=== PATIENT | female | born 1980 | race Caucasian/White ===

== ENCOUNTER 2017-10-04 10:14 | Emergency (ER) | payer OTHER ==
[~2017-10-04] VITALS: Ht 162.6 cm; Wt 52.6 kg
[~2017-10-04 10:14] MED LIST: CEFUROXIME250 MG PO; DOLOGESIC-DF 51 EACH PO; MONISTAT 31 EACH VAG
[2017-10-04] MEDS ORDERED: MULTIVITAMINAS (10:27)
[2017-10-04] MEDS ORDERED: ZITHROMAX TRI-500 MG PO (13:02)
[2017-10-04] MEDS ORDERED: TUSSI PRES-B L120 M1 PO (13:02)
== END 2017-10-04 13:13 | disposition home or self-care (01) ==
LOC: ER 10:14 → EMR PED 10:14 → ER 10:36
DX: B34.9 Viral infection, unspecified (principal)

== ENCOUNTER 2017-10-28 10:28 | Emergency (ER) | payer OTHER ==
[~2017-10-28] VITALS: Ht 167.6 cm; Wt 54.4 kg
[~2017-10-28 10:28] MED LIST changes: +MULTIVITAMINAS; +TUSSI PRES-B L120 M1 PO; +ZITHROMAX TRI-500 MG PO
== END 2017-10-28 13:55 | disposition home or self-care (01) ==
LOC: ER 10:28
DX: N93.8 Other specified abnormal uterine and vaginal bleeding (principal)

== ENCOUNTER 2018-09-17 11:49 | Emergency (ER) | payer OTHER ==
[~2018-09-17] VITALS: Ht 165.1 cm; Wt 51.3 kg
== END 2018-09-17 14:40 | disposition home or self-care (01) ==
LOC: ER 11:49
DX: N39.0 Urinary tract infection, site not specified (principal)

== ENCOUNTER → 2018-11-06 | Emergency (ER) | payer OTHER ==
[~2018-11-06] VITALS: Ht 170.2 cm; Wt 49.9 kg
== END | disposition left against medical advice (07) ==
LOC: ER 04:06
DX: Z53.20 Procedure and treatment not carried out because of patient's decision for unspecified reasons (principal)

== ENCOUNTER → 2021-05-23 | Emergency (ER) | payer OTHER | END | disposition left against medical advice (07) | LOC: ER 15:57 | DX: Z53.21 Procedure and treatment not carried out due to patient leaving prior to being seen by health care provider (principal) ==

== ENCOUNTER 2021-06-08 10:47 | Emergency (ER) | payer OTHER ==
[~2021-06-08] VITALS: Ht 170.2 cm; Wt 52.2 kg
== END 2021-06-08 13:47 | disposition home or self-care (01) ==
LOC: ER 10:47
DX: R10.9 Unspecified abdominal pain (principal)